=== PATIENT | female | born 1940 | race Caucasian/White ===

== ENCOUNTER 2021-05-17 09:02 | Inpatient (IN) | payer MEDICARE, SELFPAY ==
[2021-05-17] VITALS (13 sets, daily range): BP systolic 111–184; BP diastolic 51–84; PULSE 86–117; RESP 13–20; TEMP 36.4–38.1; O2SAT 94–98; BMI 34.0
--- NOTE | 2021-05-17 | ECG_ITS ---
Test Reason : GENERAL MEDICINE Blood Pressure : / mmHG Vent. Rate : 111 BPM Atrial Rate : 111 BPM P-R Int : 208 ms QRS Dur : 074 ms QT Int : 320 ms P-R-T Axes : 057 096 065 degrees QTc Int : 435 ms Sinus tachycardia Rightward axis Low voltage QRS Borderline ECG No previous ECGs available Referred By: Noah Joe Electronically Signed By:SHANIKA PHELAN
--- NOTE | ~2021-05-17 | XR_ITS ---
EXAMINATION: XR CHEST CLINICAL INFORMATION: Cough COMPARISON: None TECHNIQUE: Frontal view of the chest was obtained. FINDINGS: Right base airspace opacity is consistent with pneumonia in this patient with cough. Normal heart size. No pleural effusion or pneumothorax. Normal pulmonary vascularity. XR/XR chest 1V IMPRESSION: Right base airspace opacity consistent with pneumonia in this patient with cough. Recommend follow-up after treatment to confirm resolution.
--- NOTE | 2021-05-17 09:27 | ED.GENADULT ---
HPI - General Adult General Chief complaint: General Medical Stated complaint: nausea Time Seen by Provider: 05/17/21 09:23 Source: patient Mode of arrival: ambulatory Limitations: no limitations History of Present Illness HPI narrative: Patient presents to ED for acid burning sensation going up throat since last night and also mild chest pain since last night. Patient states no swelling, calf swelling, shortness of breath, weakness, or dizziness. Patient states having chronic cough. Patient states 2 episodes of pneumonia this year. Patient denies any recent hospital admission. Related Data Home Medications Medication Instructions Recorded Confirmed Lactobacillus acidophilus 10 10,000 mmu cells PO DAILY 05/17/21 05/17/21 billion cell capsule (Probiotic) aspirin 81 mg chewable tablet 81 mg PO DAILY 05/17/21 05/17/21 levothyroxine 50 mcg tablet 50 mcg PO DAILY 05/17/21 05/17/21 (Synthroid) loratadine 10 mg tablet 1 tab PO DAILY@1800 05/17/21 05/17/21 lorazepam 0.5 mg tablet 1 tab PO DAILY PRN 05/17/21 05/17/21 losartan 50 mg tablet 1 tab PO DAILY@1800 05/17/21 05/17/21 magnesium 250 mg tablet 250 mg PO Q48H 05/17/21 05/17/21 metformin 500 mg tablet,extended 1 tab PO BID 05/17/21 05/17/21 release 24 hr multivitamin 1 tab PO DAILY 05/17/21 05/17/21 omega-3 fatty acids 1,000 mg PO DAILY 05/17/21 05/17/21 pantoprazole 20 mg tablet,delayed 1 tab PO DAILY 05/17/21 05/17/21 release rosuvastatin 10 mg tablet 1 tab PO BEDTIME 05/17/21 05/17/21 timolol maleate 0.5 % eye drops 1 drp OPHTHALMIC (EYE) BID 05/17/21 05/17/21 triamterene 37.5 1 cap PO DAILY 05/17/21 05/17/21 mg-hydrochlorothiazide 25 mg capsule Allergies Allergy/AdvReac Type Severity Reaction Status Date / Time MEL Inhibitors Allergy Unknown Verified 05/17/21 09:31 Beta-Blockers Allergy Unknown Verified 05/17/21 09:31 (Beta-Adrenergic Bloc nitrofurantoin Allergy Unknown Verified 05/17/21 09:31 [From Macrobid] Review of Systems Review of Systems: Yes all other systems are reviewed and are negative Constitutional: Constitutional: Reports as per HPI and Reports no additional constitutional complaints Eyes: Eyes: Reports as per HPI and Reports no additional eye complaints ENT: Reports system reviewed and no additional complaints, except as documented and Reports as per HPI Cardiovascular: Cardiovascular: Reports as per HPI, Reports no additional cardiovascular complaints and Reports chest pain Respiratory: Respiratory: Reports as per HPI, Reports no additional respiratory complaints and Reports pain with cough (chronic) Gastrointestinal: Gastrointestinal: Reports heartburn Genitourinary: Genitourinary: Reports no additional female genitourinary complaints and Reports as per HPI Musculoskeletal: Musculoskeletal: Reports no additional musculoskeletal complaints and Reports as per HPI Neurologic: Reports system reviewed and no additional complaints, except as documented and Reports as per HPI Psychiatric: Psychiatric: Reports no additional psychiatric complaints and Reports as per HPI PMFSH Past Medical History Medical History High cholesterol HTN (hypertension) Thyroid disease Social History Social History (Updated 05/17/21 @ 14:32 by Kathy Alaniz MD) Household Members: Children Alcohol intake: never Patient Tobacco Use Status: Former Tobacco user Use of substances other than those prescribed or required for medical reasons: No Advance Directives: Yes Advance Directives on File: No Physical Exam Vital Signs: Vital Signs: Last Vital Signs Temp 98.8 F 05/17/21 15:23 Pulse 99 05/17/21 15:23 Resp 19 05/17/21 15:23 BP 132/61 05/17/21 15:23 Pulse Ox 96 05/17/21 15:23 Body Mass Index 34.0 Const: General: cooperative, healthy appearing, comfortable, no acute distress, well developed, alert, awake and Physically active Orientation/consciousness: patient oriented x3 HENMT: Head: Yes normal to inspection, Yes No palpable skull fracture present, Yes normocephalic and Yes atraumatic Eyes: General: appearance normal, both eyes and all related structures Neck: Neck: Yes normal visual inspection, Yes full ROM, Yes no lymphadenopathy, Yes no meningeal signs, Yes trachea midline, Yes supple and No tender Chest: Chest palpation & inspection: normal inspection of the chest and normal palpation of entire chest wall Resp: Effort & Inspection: normal respiratory effort and able to speak in complete sentences Auscultation: crackles on the right and rales on the right Cardio: Jugular venous distension: no JVD Heart sounds: S1 normal heart sound present and S2 normal heart sound present GI: Inspection: Yes normal to inspection and No abdominal wall ecchymosis Palpation (GI): Soft to palpation, not firm, nontender, no guarding and not rigid : General: Yes no CVA tenderness Back/Spine/Pelvis: Back: no CVA tenderness and No back tenderness Skin: General skin exam: no rashes or lesions noted and elasticity normal Neuro: General: patient oriented x3, gait normal, no meningeal signs and CN's II-XI intact bilaterally Cranial nerves: Yes CN's II-XII intact bilaterally Extrem: Other: Lower extremities negative for swelling, pitting edema, calf tenderness General: Yes normal to inspection and Yes full ROM Psych: Appearance: grossly normal, well kempt and not disheveled Course Course Course Narrative: Patient low-grade fever with tachycardia. Will order labs, chest x-ray, UA, lactic acid, and blood cultures. COVID swab ordered. Cardiac markers also ordered. EKG ordered. Reevaluation(s) Reevaluation #1: Patient has elevated white blood cell count. Chest x-ray shows pneumonia. Liver enzymes normal. Lactic acid elevated. Patient started on antibiotics. Will admit for pneumonia with sepsis. Patient is not hypoxic. Patient already had fluids. EKG only shows sinus tachycardia. Time: 12:58 Medical Decision Making [facility] Narrative Medical decision making narrative: Pneumonia. Sepsis Lab Data Result diagrams: 05/17/21 10:17 05/17/21 10:17 Labs: Lab Results 05/17/21 05/17/21 05/17/21 Range/Units 09:38 10:15 10:15 WBC (4.8-10.8) X10*3/uL RBC (4.20-5.50) X10*6/uL Hgb (12.0-16.0) g/dl Hct (37-47) % MCV (80-98) fL MCH (27.0-33.0) pg MCHC (31.0-35.0) g/dl RDW (11.0-16.0) % Plt Count (160-400) X10*3/uL MPV (9.4-12.3) fL Immature Gran % (Auto) (0.0-0.4) % Neut % (Auto) (45-73) % Lymph % (Auto) (20-40) % [place] % (Auto) (2-11) % Eos % (Auto) (0-4) % Baso % (Auto) (0-2) % Lymph # (Auto) (1.2-4.9) X10*3/uL [place] # (Auto) (0.1-1.2) X10*3/uL Eos # (Auto) (0.0-0.4) X10*3/uL Baso # (Auto) (0.0-0.2) X10*3/uL Abs Immat Gran (auto) (0.00-0.03) X10*3/uL Absolute Neuts (auto) (2.0-8.3) X10*3/uL Absolute Nucleated RBC (0.0-0.012) X10*3/uL Nucleated RBC % (auto) (0.0-0.2) /100WBC PT (9.9-13.0) SEC INR (0.9-1.1) APTT (24.1-38.0) SEC Sodium (135-145) mmol/L Potassium (3.3-5.1) mmol/L Chloride (96-108) mmol/L Carbon Dioxide (22-29) mmol/L Anion Gap (12-20) BUN (9-16) mg/dL Creatinine (0.5-1.4) mg/dL Estim Creat Clear Calc Estimated GFR Random Glucose (60-115) mg/dL Lactic Acid (0.5-2.0) mmol/L Calcium (8.4-10.2) mg/dL Ferritin (10-250) ng/mL Total Bilirubin 1.0 (0.0-1.0) mg/dL Direct Bilirubin 0.4 (0.0-0.5) mg/dL AST 50 H (5-31) U/L ALT 45 H (0-31) U/L Alkaline Phosphatase 95 (39-117) U/L Lactate Dehydrogenase (122-220) U/L Troponin I High Sens (<3.5-17.0) ng/L B-Natriuretic Peptide (<100) pg/mL Total Protein 6.8 (6.5-8.0) g/dL Albumin 4.1 (3.5-5.0) g/dL Lipase 18 (8-78) U/L Procalcitonin ng/mL Coronavirus (PCR) NEGATIVE (Negative) Influenza Type A (PCR) NEGATIVE (Negative) Influenza Type B (PCR) NEGATIVE (Negative) RSV RNA Qual (PCR) NEGATIVE (Negative) 05/17/21 05/17/21 05/17/21 Range/Units 10:16 10:16 10:17 WBC 18.2 H (4.8-10.8) X10*3/uL RBC 4.09 L (4.20-5.50) X10*6/uL Hgb 12.3 (12.0-16.0) g/dl Hct 35.4 L (37-47) % MCV 86.6 (80-98) fL MCH 30.1 (27.0-33.0) pg MCHC 34.7 (31.0-35.0) g/dl RDW 13.1 (11.0-16.0) % Plt Count 263 (160-400) X10*3/uL MPV 10.0 (9.4-12.3) fL Immature Gran % (Auto) 0.6 H (0.0-0.4) % Neut % (Auto) 86.8 H (45-73) % Lymph % (Auto) 5.9 L (20-40) % [place] % (Auto) 6.3 (2-11) % Eos % (Auto) 0.2 (0-4) % Baso % (Auto) 0.2 (0-2) % Lymph # (Auto) 1.1 L (1.2-4.9) X10*3/uL [place] # (Auto) 1.1 (0.1-1.2) X10*3/uL Eos # (Auto) 0.0 (0.0-0.4) X10*3/uL Baso # (Auto) 0.0 (0.0-0.2) X10*3/uL Abs Immat Gran (auto) 0.11 H (0.00-0.03) X10*3/uL Absolute Neuts (auto) 15.8 H (2.0-8.3) X10*3/uL Absolute Nucleated RBC 0.000 (0.0-0.012) X10*3/uL Nucleated RBC % (auto) 0.0 (0.0-0.2) /100WBC PT (9.9-13.0) SEC INR (0.9-1.1) APTT (24.1-38.0) SEC Sodium (135-145) mmol/L Potassium (3.3-5.1) mmol/L Chloride (96-108) mmol/L Carbon Dioxide (22-29) mmol/L Anion Gap (12-20) BUN (9-16) mg/dL Creatinine (0.5-1.4) mg/dL Estim Creat Clear Calc Estimated GFR Random Glucose (60-115) mg/dL Lactic Acid (0.5-2.0) mmol/L Calcium (8.4-10.2) mg/dL Ferritin 65 (10-250) ng/mL Total Bilirubin (0.0-1.0) mg/dL Direct Bilirubin (0.0-0.5) mg/dL AST (5-31) U/L ALT (0-31) U/L Alkaline Phosphatase (39-117) U/L Lactate Dehydrogenase 181 (122-220) U/L Troponin I High Sens 15.2 (<3.5-17.0) ng/L B-Natriuretic Peptide 27 (<100) pg/mL Total Protein (6.5-8.0) g/dL Albumin (3.5-5.0) g/dL Lipase (8-78) U/L Procalcitonin ng/mL Coronavirus (PCR) (Negative) Influenza Type A (PCR) (Negative) Influenza Type B (PCR) (Negative) RSV RNA Qual (PCR) (Negative) 05/17/21 05/17/21 05/17/21 Range/Units 10:17 10:17 10:17 WBC (4.8-10.8) X10*3/uL RBC (4.20-5.50) X10*6/uL Hgb (12.0-16.0) g/dl Hct (37-47) % MCV (80-98) fL MCH (27.0-33.0) pg MCHC (31.0-35.0) g/dl RDW (11.0-16.0) % Plt Count (160-400) X10*3/uL MPV (9.4-12.3) fL Immature Gran % (Auto) (0.0-0.4) % Neut % (Auto) (45-73) % Lymph % (Auto) (20-40) % [place] % (Auto) (2-11) % Eos % (Auto) (0-4) % Baso % (Auto) (0-2) % Lymph # (Auto) (1.2-4.9) X10*3/uL [place] # (Auto) (0.1-1.2) X10*3/uL Eos # (Auto) (0.0-0.4) X10*3/uL Baso # (Auto) (0.0-0.2) X10*3/uL Abs Immat Gran (auto) (0.00-0.03) X10*3/uL Absolute Neuts (auto) (2.0-8.3) X10*3/uL Absolute Nucleated RBC (0.0-0.012) X10*3/uL Nucleated RBC % (auto) (0.0-0.2) /100WBC PT 11.8 (9.9-13.0) SEC INR 1.0 (0.9-1.1) APTT 30.1 (24.1-38.0) SEC Sodium 137 (135-145) mmol/L Potassium 3.4 (3.3-5.1) mmol/L Chloride 102 (96-108) mmol/L Carbon Dioxide 23 (22-29) mmol/L Anion Gap 15 (12-20) BUN 17 H (9-16) mg/dL Creatinine 0.84 (0.5-1.4) mg/dL Estim Creat Clear Calc 59.9 Estimated GFR > 60 Random Glucose 177 H (60-115) mg/dL Lactic Acid (0.5-2.0) mmol/L Calcium 9.6 (8.4-10.2) mg/dL Ferritin (10-250) ng/mL Total Bilirubin (0.0-1.0) mg/dL Direct Bilirubin (0.0-0.5) mg/dL AST (5-31) U/L ALT (0-31) U/L Alkaline Phosphatase (39-117) U/L Lactate Dehydrogenase (122-220) U/L Troponin I High Sens (<3.5-17.0) ng/L B-Natriuretic Peptide (<100) pg/mL Total Protein (6.5-8.0) g/dL Albumin (3.5-5.0) g/dL Lipase (8-78) U/L Procalcitonin 1.01 ng/mL Coronavirus (PCR) (Negative) Influenza Type A (PCR) (Negative) Influenza Type B (PCR) (Negative) RSV RNA Qual (PCR) (Negative) 05/17/21 Range/Units 11:06 WBC (4.8-10.8) X10*3/uL RBC (4.20-5.50) X10*6/uL Hgb (12.0-16.0) g/dl Hct (37-47) % MCV (80-98) fL MCH (27.0-33.0) pg MCHC (31.0-35.0) g/dl RDW (11.0-16.0) % Plt Count (160-400) X10*3/uL MPV (9.4-12.3) fL Immature Gran % (Auto) (0.0-0.4) % Neut % (Auto) (45-73) % Lymph % (Auto) (20-40) % [place] % (Auto) (2-11) % Eos % (Auto) (0-4) % Baso % (Auto) (0-2) % Lymph # (Auto) (1.2-4.9) X10*3/uL [place] # (Auto) (0.1-1.2) X10*3/uL Eos # (Auto) (0.0-0.4) X10*3/uL Baso # (Auto) (0.0-0.2) X10*3/uL Abs Immat Gran (auto) (0.00-0.03) X10*3/uL Absolute Neuts (auto) (2.0-8.3) X10*3/uL Absolute Nucleated RBC (0.0-0.012) X10*3/uL Nucleated RBC % (auto) (0.0-0.2) /100WBC PT (9.9-13.0) SEC INR (0.9-1.1) APTT (24.1-38.0) SEC Sodium (135-145) mmol/L Potassium (3.3-5.1) mmol/L Chloride (96-108) mmol/L Carbon Dioxide (22-29) mmol/L Anion Gap (12-20) BUN (9-16) mg/dL Creatinine (0.5-1.4) mg/dL Estim Creat Clear Calc Estimated GFR Random Glucose (60-115) mg/dL Lactic Acid 2.7 H* (0.5-2.0) mmol/L Calcium (8.4-10.2) mg/dL Ferritin (10-250) ng/mL Total Bilirubin (0.0-1.0) mg/dL Direct Bilirubin (0.0-0.5) mg/dL AST (5-31) U/L ALT (0-31) U/L Alkaline Phosphatase (39-117) U/L Lactate Dehydrogenase (122-220) U/L Troponin I High Sens (<3.5-17.0) ng/L B-Natriuretic Peptide (<100) pg/mL Total Protein (6.5-8.0) g/dL Albumin (3.5-5.0) g/dL Lipase (8-78) U/L Procalcitonin ng/mL Coronavirus (PCR) (Negative) Influenza Type A (PCR) (Negative) Influenza Type B (PCR) (Negative) RSV RNA Qual (PCR) (Negative) ECG Data Interpretation: Sinus tachycardia. Ventricular rate 111. Pr interval 208. QRS 74. QTC 435. Negative STEMI Critical Care Time Critical Care Time Critical Care Time: Yes Total Critical Care Time: 60 Attestation: Patient started antibiotics and given fluids. Hospitals made aware of case. Discharge Plan Discharge Clinical Impression: Pneumonia, Sepsis Patient Disposition: Admitted As Inpatient
[2021-05-17 10:27] LABS: MANUAL DIFF FLAG NO
[2021-05-17 10:29] LABS: Basophils Percent Auto 0.2 % (0-2); Eosinophils Percent Auto 0.2 % (0-4); Hematocrit 35.4 % (37-47); Hemoglobin 12.3 g/dl (12.0-16.0); Imm Gran Abs Auto 0.11 X10*3/uL (0.00-0.03); Imm Gran Pct Auto 0.6 % (0.0-0.4); Lymphocytes Absolute Auto 1.1 X10*3/uL (1.2-4.9); Lymphocytes Percent Auto 5.9 % (20-40); Mean Corpuscular HGB Conc 34.7 g/dl (31.0-35.0); Mean Corpuscular Hemoglobin 30.1 pg (27.0-33.0); Mean Corpuscular Volume 86.6 fL (80-98); Monocytes Absolute Auto 1.1 X10*3/uL (0.1-1.2); Monocytes Percent Auto 6.3 % (2-11); Neutrophils Absolute Auto 15.8 X10*3/uL (2.0-8.3); Neutrophils Percent Auto 86.8 % (45-73); Platelet Count 263 X10*3/uL (160-400); Red Blood Count 4.09 X10*6/uL (4.20-5.50); Red Cell Distribution Width 13.1 % (11.0-16.0); White Blood Count 18.2 X10*3/uL (4.8-10.8)
[2021-05-17 10:35] LABS: Prothrombin Time 11.8 SEC (9.9-13.0)
[2021-05-17 10:37] LABS: Partial Thromboplastin Time 30.1 SEC (24.1-38.0)
[2021-05-17 10:43] LABS: Lactate Dehydrogenase 181 U/L (122-220)
[2021-05-17 10:44] LABS: Anion Gap 15 (12-20); Blood Urea Nitrogen 17 mg/dL (9-16); Calcium 9.6 mg/dL (8.4-10.2); Carbon Dioxide 23 mmol/L (22-29); Chloride 102 mmol/L (96-108); Creatinine Clr Calc Pharmacy 59.9; Estimated Glomerular Filt Rate > 60; Glucose Random 177 mg/dL (60-115); Potassium 3.4 mmol/L (3.3-5.1); Sodium 137 mmol/L (135-145)
[2021-05-17 10:45] LABS: Alanine Aminotransferase 45 U/L (0-31); Albumin Level 4.1 g/dL (3.5-5.0); Alkaline Phosphatase 95 U/L (39-117); Aspartate Amino Transferase 50 U/L (5-31); Bilirubin Direct 0.4 mg/dL (0.0-0.5); Lipase 18 U/L (8-78); Total Protein 6.8 g/dL (6.5-8.0)
[2021-05-17] MEDS: 0.9 % Sodium Chloride 1,000 ML 999 ML IV (10:48)
[2021-05-17 10:49] LABS: B Type Natriuretic Peptide 27 pg/mL (<100); Troponin-I High Sensitivity 15.2 ng/L (<3.5-17.0)
[2021-05-17 11:06] LABS: Ferritin 65 ng/mL (10-250)
[2021-05-17 11:10] LABS: Procalcitonin 1.01 ng/mL
[2021-05-17 11:16] LABS: Influenza A PCR NEGATIVE (Negative); Influenza B PCR NEGATIVE (Negative); Resp Syncy Virus RNA Qual PCR NEGATIVE (Negative); SARS COV2 PCR INHOUSE NEGATIVE (Negative)
[2021-05-17] MEDS: cefTRIAXone sodium 1 GM in 0.9 % Sodium Chloride 50 ML IV (11:40)
[2021-05-17 11:51] LABS: Lactic Acid 2.7 mmol/L (0.5-2.0)
[2021-05-17] MEDS: Azithromycin 500 MG in 0.9 % Sodium Chloride 250 ML 125 MG IV (12:43)
[2021-05-17 13:18] LABS: Reflex Lactate? Lactic Acid Added
--- NOTE | 2021-05-17 13:30 | PC.NURSE ---
dr. ag at bedside pt aware of plan of care for admission to hosp.
--- NOTE | 2021-05-17 14:26 | PM.IMHP ---
History of Present Illness Date of Service: 05/17/21 Chief Complaint: Throat pain and cough 80-year-old female patient with past medical history significant for diabetes mellitus, hypothyroidism, 2 recent episodes of pneumonia in last 1 year treated with antibiotics was seen by emergency services professional at [place] and was told that likely there were side effects of Macrobid that she was using for UTI, patient presented to [facility] [place] this morning, due to symptoms of throat pain and coughing since last night therefore she remain upright on a recliner at home later started feeling cold and shivering Janae put on her socks and a bathrobe checked a temperature that was 97 and this morning she noticed un easy nurse in chest in both upper arms she is unable to describe it further but denies any chest pain no heaviness no associated shortness of breath no palpitation no near-syncope with these symptoms she called her PCP and was referred to [place] [facility] where she was noted to have a low-grade fever a chest x-ray showedRight base pneumonia patient treated in emergency room with IV ceftriaxone and azithromycin and now being admitted to [facility] for continued monitoring and evaluation Review of Systems Review of Systems: General mild headache no dizziness, no fever, positive chills. CVS no chest pain, no palpitation. Respiratory dry cough , mild shortness of breath, no respiratory distress Gastrointestinal no nausea no vomiting, no abdominal pain skin no rash Yes all other systems are reviewed and are negative [facility] Medical History High cholesterol HTN (hypertension) Thyroid disease Functional capacity: independent ambulation Pertinent family history: No history of premature coronary artery disease or lung cancer mother had quadruple bypass at 870 Social History (Updated 05/17/21 @ 14:32 by Kathy Alaniz MD) Household Members: Children Alcohol intake: never Patient Tobacco Use Status: Former Tobacco user Use of substances other than those prescribed or required for medical reasons: No Advance Directives: Yes Advance Directives on File: No Meds Allergies Allergy/AdvReac Type Severity Reaction Status Date / Time MEL Inhibitors Allergy Unknown Verified 05/17/21 09:31 Beta-Blockers Allergy Unknown Verified 05/17/21 09:31 (Beta-Adrenergic Bloc nitrofurantoin Allergy Unknown Verified 05/17/21 09:31 [From Macrobid] Active Medications: Current Medications Generic Name Dose Route Start Last Admin Trade Name Freq PRN Reason Stop Dose Admin Enoxaparin Sodium 40 mg 05/17/21 14:30 Enoxaparin Sodium 40 Mg/0.4 Ml Syringe SUBCUT Q24H [facility] Guaifenesin/Dextromethorphan 10 ml 05/17/21 14:21 Guaifenesin Dm 100/10/5 Ml 5 Ml Syrup PO Q6H PRN cough Ceftriaxone Sodium 1 gm/ 50 mls @ 100 mls/hr 05/17/21 14:30 Sodium Chloride IV Q24H [facility] Pharmacy Consult 1 each 05/17/21 13:34 Consult Rx Perform Med Rec MISCELLANE ONCE PRN Consult order Sodium Chloride 3 ml 05/17/21 16:00 0.9 % Sodium Chloride Flush 3 Ml Syringe IVFLUSH QSHIFT [facility] Home Medications Medication Instructions Recorded Confirmed Last Taken Type levothyroxine 50 mcg tablet tab PO 05/17/21 Unknown History (Synthroid) loratadine 10 mg tablet 1 tab PO DAILY 05/17/21 Unknown History lorazepam 0.5 mg tablet 1 tab PO DAILY PRN 05/17/21 Unknown History losartan 50 mg tablet 1 tab PO DAILY 05/17/21 Unknown History metformin 500 mg tablet,extended 1 tab PO BID 05/17/21 Unknown History release 24 hr omeprazole 20 mg capsule,delayed 1 cap PO DAILY 05/17/21 Unknown History release pantoprazole 20 mg tablet,delayed 1 tab PO DAILY 05/17/21 Unknown History release rosuvastatin 10 mg tablet 1 tab PO BEDTIME 05/17/21 Unknown History timolol maleate 0.5 % eye drops drp 05/17/21 Unknown History triamterene 37.5 1 cap PO DAILY 05/17/21 Unknown History mg-hydrochlorothiazide 25 mg capsule Physical Exam Vital Signs and Narrative: Vital Signs: Last Vital Signs Temp 99.8 F 05/17/21 13:47 Pulse 102 H 05/17/21 13:47 Resp 19 05/17/21 13:47 BP 116/56 L 05/17/21 13:47 Pulse Ox 94 05/17/21 13:47 Body Mass Index 34.0 General no acute distress. Neck is supple no JVD. CVS regular rate rhythm, Respiratory lungs clear to auscultation, coarse breath sound at right base, no respiratory distress, no wheeze, no rhonchi. Gastrointestinal abdomen soft, nontender, bowel sounds audible, no no guarding , no rigidity. Extremities no clubbing cyanosis or edema. Neuro alert x oriented x3, nonfocal patient moving all 4 extremity speech clear. Skin no rash Psych appropriate affect Results Labs CBC and Chem 7: 05/17/21 10:17 05/17/21 10:17 Labs: Laboratory Results - last 24 hr 05/17/21 05/17/21 05/17/21 09:38 10:15 10:15 MCV MCH MCHC RDW Plt Count MPV Immature Gran % (Auto) Neut % (Auto) Lymph % (Auto) [place] % (Auto) Eos % (Auto) Baso % (Auto) Lymph # (Auto) [place] # (Auto) Eos # (Auto) Baso # (Auto) Abs Immat Gran (auto) Absolute Neuts (auto) Absolute Nucleated RBC Nucleated RBC % (auto) PT INR APTT Anion Gap Estim Creat Clear Calc Estimated GFR Random Glucose Lactic Acid Calcium Ferritin Total Bilirubin 1.0 Direct Bilirubin 0.4 AST 50 H ALT 45 H Alkaline Phosphatase 95 Lactate Dehydrogenase Troponin I High Sens B-Natriuretic Peptide Total Protein 6.8 Albumin 4.1 Lipase 18 Procalcitonin Coronavirus (PCR) NEGATIVE Influenza Type A (PCR) NEGATIVE Influenza Type B (PCR) NEGATIVE RSV RNA Qual (PCR) NEGATIVE 05/17/21 05/17/21 05/17/21 10:16 10:16 10:17 MCV 86.6 MCH 30.1 MCHC 34.7 RDW 13.1 Plt Count 263 MPV 10.0 Immature Gran % (Auto) 0.6 H Neut % (Auto) 86.8 H Lymph % (Auto) 5.9 L [place] % (Auto) 6.3 Eos % (Auto) 0.2 Baso % (Auto) 0.2 Lymph # (Auto) 1.1 L [place] # (Auto) 1.1 Eos # (Auto) 0.0 Baso # (Auto) 0.0 Abs Immat Gran (auto) 0.11 H Absolute Neuts (auto) 15.8 H Absolute Nucleated RBC 0.000 Nucleated RBC % (auto) 0.0 PT INR APTT Anion Gap Estim Creat Clear Calc Estimated GFR Random Glucose Lactic Acid Calcium Ferritin 65 Total Bilirubin Direct Bilirubin AST ALT Alkaline Phosphatase Lactate Dehydrogenase 181 Troponin I High Sens 15.2 B-Natriuretic Peptide 27 Total Protein Albumin Lipase Procalcitonin Coronavirus (PCR) Influenza Type A (PCR) Influenza Type B (PCR) RSV RNA Qual (PCR) 05/17/21 05/17/21 05/17/21 10:17 10:17 10:17 MCV MCH MCHC RDW Plt Count MPV Immature Gran % (Auto) Neut % (Auto) Lymph % (Auto) [place] % (Auto) Eos % (Auto) Baso % (Auto) Lymph # (Auto) [place] # (Auto) Eos # (Auto) Baso # (Auto) Abs Immat Gran (auto) Absolute Neuts (auto) Absolute Nucleated RBC Nucleated RBC % (auto) PT 11.8 INR 1.0 APTT 30.1 Anion Gap 15 Estim Creat Clear Calc 59.9 Estimated GFR > 60 Random Glucose 177 H Lactic Acid Calcium 9.6 Ferritin Total Bilirubin Direct Bilirubin AST ALT Alkaline Phosphatase Lactate Dehydrogenase Troponin I High Sens B-Natriuretic Peptide Total Protein Albumin Lipase Procalcitonin 1.01 Coronavirus (PCR) Influenza Type A (PCR) Influenza Type B (PCR) RSV RNA Qual (PCR) 05/17/21 11:06 MCV MCH MCHC RDW Plt Count MPV Immature Gran % (Auto) Neut % (Auto) Lymph % (Auto) [place] % (Auto) Eos % (Auto) Baso % (Auto) Lymph # (Auto) [place] # (Auto) Eos # (Auto) Baso # (Auto) Abs Immat Gran (auto) Absolute Neuts (auto) Absolute Nucleated RBC Nucleated RBC % (auto) PT INR APTT Anion Gap Estim Creat Clear Calc Estimated GFR Random Glucose Lactic Acid 2.7 H* Calcium Ferritin Total Bilirubin Direct Bilirubin AST ALT Alkaline Phosphatase Lactate Dehydrogenase Troponin I High Sens B-Natriuretic Peptide Total Protein Albumin Lipase Procalcitonin Coronavirus (PCR) Influenza Type A (PCR) Influenza Type B (PCR) RSV RNA Qual (PCR) Imaging Radiologist's Impressions: Impressions Chest X-Ray 05/17/21 10:22 IMPRESSION: Right base airspace opacity consistent with pneumonia in this patient with cough. Recommend follow-up after treatment to confirm resolution. Assessment and Plan (1) Pneumonia: Status: Acute (2) Sepsis: Status: Acute 80-year-old female with past medical history of hypertension, diabetes mellitus, and hypothyroidism with 2 prior episodes of pneumonia in last 1 year presented to [facility] due to sore throat cough fever chills and diagnosed to have sepsis due to pneumonia. Pneumonia with severe sepsis Patient meets sepsis criteria due to tachycardia leukocytosis, lactic acidosis, has low-grade fever, sepsis focused examination done. Will admit to medical floor patient will be treated with IV ceftriaxone and azithromycin for community-acquired pneumonia will follow 2 set of blood cultures Place patient on cough medication, follow CBC ,lactic acid, electrolytes Diabetes mellitus Uncontrolled blood sugar will place on insulin sliding scale continue home medication Hypertension noted to have elevated blood pressure on arrival subsequently blood pressure improved continue home medication follow BP closely Hypothyroidism continue Synthroid DVT prophylaxis will place on Lovenox Code status full code Quality Stroke Does the patient have a stroke diagnosis?: No VTE Prior VTE?: No VTE Risk Level:: Medical - moderate - high VTE Device Contraindication: Treatment Not Indicated VTE Drug Contraindication: N/A - Med Ordered
--- NOTE | 2021-05-17 14:51 | PHA.MEDREC ---
Pharmacy Consult ? Medication Reconciliation Pharmacy has completed the medication reconciliation. There are no remarkable issues for provider's attention. Petrona Guerrero, LarissaD
[2021-05-17 15:37] LABS: Appearance Urine CLEAR; Color Urine YELLOW; Glucose Urine UA NEG (NEG); Leukocyte Esterase Urine TRACE (NEG); Nitrite Urine NEG (NEG); UACC Culture Trigger YES; Urine Blood NEG (NEG); Urine Ketones NEG (NEG); Urine Protein NEG (NEG-TRACE)
[2021-05-17] MEDS: Enoxaparin Sodium 40 MG/0.4 ML SYRINGE SUBCUT (15:38)
[2021-05-17 15:56] LABS: Bacteria Urine TRACE /LPF; RBC Urine 0-2 /HPF (0); Squamous Epithelial Cell Urine TRACE /LPF; WBC Urine 0-2 /HPF (0-4)
--- NOTE | 2021-05-17 16:11 | PC.NURSE ---
called to med surg, nurse to call for report
[2021-05-17 17:04] LABS: ~Lactic Acid-LAB USE ONLY 2.3 mmol/L (0.5-2.0)
[2021-05-17 18:20] LABS: Reflex Lactate? 2 Y
[2021-05-17] MEDS: Acetaminophen 325 MG TABLET 650 MG PO (18:36)
[2021-05-17 19:43] LABS: ~Lactic Acid-LAB USE ONLY 2.2 mmol/L (0.5-2.0)
[2021-05-17] MEDS: 0.9 % Sodium Chloride Flush 3 ML SYRINGE IVFLUSH (20:32)
[2021-05-18] MEDS: Levothyroxine Sodium 50 MCG TABLET PO (06:02)
[2021-05-18 07:46] VITALS: BP 160/85; PULSE 83; RESP 17; TEMP 36.4; O2SAT 96
[2021-05-18 08:14] LABS: MANUAL DIFF FLAG NO
[2021-05-18 08:18] LABS: Basophils Percent Auto 0.3 % (0-2); Eosinophils Absolute Auto 0.3 X10*3/uL (0.0-0.4); Eosinophils Percent Auto 2.3 % (0-4); Hemoglobin 11.4 g/dl (12.0-16.0); Imm Gran Abs Auto 0.05 X10*3/uL (0.00-0.03); Imm Gran Pct Auto 0.4 % (0.0-0.4); Lymphocytes Absolute Auto 2.8 X10*3/uL (1.2-4.9); Lymphocytes Percent Auto 21.5 % (20-40); Mean Corpuscular HGB Conc 33.5 g/dl (31.0-35.0); Mean Corpuscular Hemoglobin 29.5 pg (27.0-33.0); Mean Corpuscular Volume 88.1 fL (80-98); Monocytes Absolute Auto 0.8 X10*3/uL (0.1-1.2); Monocytes Percent Auto 5.8 % (2-11); Neutrophils Absolute Auto 9.2 X10*3/uL (2.0-8.3); Neutrophils Percent Auto 69.7 % (45-73); Platelet Count 264 X10*3/uL (160-400); Red Blood Count 3.86 X10*6/uL (4.20-5.50); Red Cell Distribution Width 13.4 % (11.0-16.0); White Blood Count 13.1 X10*3/uL (4.8-10.8)
[2021-05-18] MEDS: Omeprazole 20 MG CAPSULE.DR PO (09:22)
[2021-05-18] MEDS: Triamterene/HCTZ 37.5/25 TABLET 1 TAB PO (09:22)
[2021-05-18] MEDS: Aspirin 81 MG TAB.CHEW PO (09:22)
[2021-05-18] MEDS: Azithromycin 500 MG in 0.9 % Sodium Chloride 250 ML 125 MG IV (09:23)
[2021-05-18] MEDS: Multivitamin TABLET 1 TAB PO (09:23)
[2021-05-18] MEDS: 0.9 % Sodium Chloride Flush 3 ML SYRINGE IVFLUSH (09:24)
[2021-05-18] MEDS: metFORMIN HCl ER 500 MG TAB.ER.24H PO (10:34)
[2021-05-18] MEDS: timoloL maleate 0.5 % Oph Sol 5 ML DRBTL 1 DROP EYE-BOTH (10:34)
--- NOTE | 2021-05-18 10:41 | PM.DS ---
DS: Providers Provider Date of Service: 05/18/21 Date of admission: 05/17/21 14:21 Primary care physician: Disha Hernandez NP DS: Diagnosis Discharge Diagnosis (1) Pneumonia: Status: Acute (2) Sepsis: Status: Acute DS: Summary Hospital Course Hospital Course: History presenting illness Chief Complaint: Throat pain and cough 80-year-old female patient with past medical history significant for diabetes mellitus, hypothyroidism, 2 recent episodes of pneumonia in last 1 year treated with antibiotics was seen by olive picker at [place] and was told that likely there were side effects of Macrobid that she was using for UTI, patient presented to [facility] this morning, due to symptoms of throat pain and coughing since last night therefore she remain upright on a recliner at home later started feeling cold and shivering Janae put on her socks and a bathrobe checked a temperature that was 97 and this morning she noticed un easy nurse in chest in both upper arms she is unable to describe it further but denies any chest pain no heaviness no associated shortness of breath no palpitation no near-syncope with these symptoms she called her PCP and was referred to [facility] where she was noted to have a low-grade fever a chest x-ray showedRight base pneumonia patient treated in emergency room with IV ceftriaxone and azithromycin and now being admitted to [facility] for continued monitoring and evaluation Hospital course Patient admitted with a diagnosis of severe sepsis, all symptoms of sepsis improved, no tachycardia tachypnea this morning no fever WBC trending down, blood cultures x2 negative, patient treated with IV ceftriaxone and IV azithromycin has received 2 days of antibiotic will discharge home on 5 more days of Ceftin and azithromycin recommended to drink plenty of fluids rest take cough medication as needed and return to check with any worsening symptoms of fever chills lightheadedness dizziness or near syncope. She has been recommended to continue all home medications. Time Spent with Patient Time attestation: Total time spent providing and/or coordinating discharge services: Discharge coordination time: Less than 30 minutes Quality: Stroke Does the patient have a stroke diagnosis?: No Physical Exam Vital Signs: Vital Signs: Last Vital Signs Temp 97.5 F 05/18/21 07:46 Pulse 83 05/18/21 07:46 Resp 17 05/18/21 07:46 BP 160/85 H 05/18/21 07:46 Pulse Ox 96 09/11/21 07:46 Body Mass Index 34.0 General? no acute distress.? Neck is supple no JVD. CVS? regular rate rhythm, Respiratory lungs clear to auscultation, coarse breath sound at right base, no respiratory distress, no wheeze, no rhonchi. Gastrointestinal abdomen soft, nontender, bowel sounds audible, no no guarding , no rigidity. Extremities no clubbing cyanosis or edema. Neuro alert x oriented x3, nonfocal patient moving all 4 extremity speech clear. Skin no rash Psych appropriate affect DS: Data Data Completed and Pending Labs on day of discharge: Laboratory Results - last 24 hr 05/17/21 05/17/21 05/17/21 09:38 10:15 10:15 WBC RBC Hgb Hct MCV MCH MCHC RDW Plt Count MPV Immature Gran % (Auto) Neut % (Auto) Lymph % (Auto) Powell % (Auto) Eos % (Auto) Baso % (Auto) Lymph # (Auto) Powell # (Auto) Eos # (Auto) Baso # (Auto) Abs Immat Gran (auto) Absolute Neuts (auto) Absolute Nucleated RBC Nucleated RBC % (auto) PT INR APTT Sodium Potassium Chloride Carbon Dioxide Anion Gap BUN Creatinine Estim Creat Clear Calc Estimated GFR Random Glucose Lactic Acid Lactic Acid Fup @ 2Hr Lactic Acid Fup @ 4Hr Calcium Ferritin Total Bilirubin 1.0 Direct Bilirubin 0.4 AST 50 H ALT 45 H Alkaline Phosphatase 95 Lactate Dehydrogenase Troponin I High Sens B-Natriuretic Peptide Total Protein 6.8 Albumin 4.1 Lipase 18 Procalcitonin Urine Color Urine Appearance Urine pH Ur Specific [place] Urine Protein Urine Glucose (UA) Urine Ketones Urine Blood Urine Nitrite Ur Leukocyte Esterase Urine RBC Urine WBC Ur Squamous Epith Cells Urine Bacteria Coronavirus (PCR) NEGATIVE Influenza Type A (PCR) NEGATIVE Influenza Type B (PCR) NEGATIVE RSV RNA Qual (PCR) NEGATIVE 05/17/21 05/17/21 05/17/21 10:16 10:16 10:17 WBC RBC Hgb Hct MCV MCH MCHC RDW Plt Count MPV Immature Gran % (Auto) Neut % (Auto) Lymph % (Auto) Powell % (Auto) Eos % (Auto) Baso % (Auto) Lymph # (Auto) Powell # (Auto) Eos # (Auto) Baso # (Auto) Abs Immat Gran (auto) Absolute Neuts (auto) Absolute Nucleated RBC Nucleated RBC % (auto) PT 11.8 INR 1.0 APTT 30.1 Sodium Potassium Chloride Carbon Dioxide Anion Gap BUN Creatinine Estim Creat Clear Calc Estimated GFR Random Glucose Lactic Acid Lactic Acid Fup @ 2Hr Lactic Acid Fup @ 4Hr Calcium Ferritin 65 Total Bilirubin Direct Bilirubin AST ALT Alkaline Phosphatase Lactate Dehydrogenase 181 Troponin I High Sens 15.2 B-Natriuretic Peptide 27 Total Protein Albumin Lipase Procalcitonin Urine Color Urine Appearance Urine pH Ur Specific [place] Urine Protein Urine Glucose (UA) Urine Ketones Urine Blood Urine Nitrite Ur Leukocyte Esterase Urine RBC Urine WBC Ur Squamous Epith Cells Urine Bacteria Coronavirus (PCR) Influenza Type A (PCR) Influenza Type B (PCR) RSV RNA Qual (PCR) 05/17/21 05/17/21 05/17/21 10:17 10:17 11:06 WBC RBC Hgb Hct MCV MCH MCHC RDW Plt Count MPV Immature Gran % (Auto) Neut % (Auto) Lymph % (Auto) Powell % (Auto) Eos % (Auto) Baso % (Auto) Lymph # (Auto) Powell # (Auto) Eos # (Auto) Baso # (Auto) Abs Immat Gran (auto) Absolute Neuts (auto) Absolute Nucleated RBC Nucleated RBC % (auto) PT INR APTT Sodium 137 Potassium 3.4 Chloride 102 Carbon Dioxide 23 Anion Gap 15 BUN 17 H Creatinine 0.84 Estim Creat Clear Calc 59.9 Estimated GFR > 60 Random Glucose 177 H Lactic Acid 2.7 H* Lactic Acid Fup @ 2Hr Lactic Acid Fup @ 4Hr Calcium 9.6 Ferritin Total Bilirubin Direct Bilirubin AST ALT Alkaline Phosphatase Lactate Dehydrogenase Troponin I High Sens B-Natriuretic Peptide Total Protein Albumin Lipase Procalcitonin 1.01 Urine Color Urine Appearance Urine pH Ur Specific [place] Urine Protein Urine Glucose (UA) Urine Ketones Urine Blood Urine Nitrite Ur Leukocyte Esterase Urine RBC Urine WBC Ur Squamous Epith Cells Urine Bacteria Coronavirus (PCR) Influenza Type A (PCR) Influenza Type B (PCR) RSV RNA Qual (PCR) 05/17/21 05/17/21 05/17/21 15:29 16:14 19:06 WBC RBC Hgb Hct MCV MCH MCHC RDW Plt Count MPV Immature Gran % (Auto) Neut % (Auto) Lymph % (Auto) Powell % (Auto) Eos % (Auto) Baso % (Auto) Lymph # (Auto) Powell # (Auto) Eos # (Auto) Baso # (Auto) Abs Immat Gran (auto) Absolute Neuts (auto) Absolute Nucleated RBC Nucleated RBC % (auto) PT INR APTT Sodium Potassium Chloride Carbon Dioxide Anion Gap BUN Creatinine Estim Creat Clear Calc Estimated GFR Random Glucose Lactic Acid Lactic Acid Fup @ 2Hr 2.3 H* Lactic Acid Fup @ 4Hr 2.2 H* Calcium Ferritin Total Bilirubin Direct Bilirubin AST ALT Alkaline Phosphatase Lactate Dehydrogenase Troponin I High Sens B-Natriuretic Peptide Total Protein Albumin Lipase Procalcitonin Urine Color YELLOW Urine Appearance CLEAR Urine pH 6.0 Ur Specific [place] 1.020 Urine Protein NEG Urine Glucose (UA) NEG Urine Ketones NEG Urine Blood NEG Urine Nitrite NEG Ur Leukocyte Esterase TRACE H Urine RBC 0-2 Urine WBC 0-2 Ur Squamous Epith Cells TRACE Urine Bacteria TRACE Coronavirus (PCR) Influenza Type A (PCR) Influenza Type B (PCR) RSV RNA Qual (PCR) 05/18/21 07:47 WBC 13.1 H RBC 3.86 L Hgb 11.4 L Hct 34.0 L MCV 88.1 MCH 29.5 MCHC 33.5 RDW 13.4 Plt Count 264 MPV 10.0 Immature Gran % (Auto) 0.4 Neut % (Auto) 69.7 Lymph % (Auto) 21.5 Powell % (Auto) 5.8 Eos % (Auto) 2.3 Baso % (Auto) 0.3 Lymph # (Auto) 2.8 Powell # (Auto) 0.8 Eos # (Auto) 0.3 Baso # (Auto) 0.0 Abs Immat Gran (auto) 0.05 H Absolute Neuts (auto) 9.2 H Absolute Nucleated RBC 0.000 Nucleated RBC % (auto) 0.0 PT INR APTT Sodium Potassium Chloride Carbon Dioxide Anion Gap BUN Creatinine Estim Creat Clear Calc Estimated GFR Random Glucose Lactic Acid Lactic Acid Fup @ 2Hr Lactic Acid Fup @ 4Hr Calcium Ferritin Total Bilirubin Direct Bilirubin AST ALT Alkaline Phosphatase Lactate Dehydrogenase Troponin I High Sens B-Natriuretic Peptide Total Protein Albumin Lipase Procalcitonin Urine Color Urine Appearance Urine pH Ur Specific [place] Urine Protein Urine Glucose (UA) Urine Ketones Urine Blood Urine Nitrite Ur Leukocyte Esterase Urine RBC Urine WBC Ur Squamous Epith Cells Urine Bacteria Coronavirus (PCR) Influenza Type A (PCR) Influenza Type B (PCR) RSV RNA Qual (PCR) Discharge Plan Discharge Patient Disposition: Home, Self-Care Discharge Diagnosis: Sepsis due to Pneumonia Diabetes mellitus Referrals: Disha Hernandez, [employer] [Primary Care Provider] - 1 Week Discharge Medications: New cefuroxime axetil 500 mg tablet 500 mg PO Q12H 5 Days Qty: 10 RF: 0 azithromycin 250 mg tablet 250 mg PO DAILY Qty: 4 RF: 0 Continued losartan 50 mg tablet 1 tab PO DAILY@1800 RF: 0 triamterene-hydrochlorothiazid 37.5-25 mg capsule 1 cap PO DAILY RF: 0 pantoprazole 20 mg tablet,delayed release (DR/EC) 1 tab PO DAILY RF: 0 lorazepam 0.5 mg tablet 1 tab PO DAILY PRN (Reason: Anxiety) RF: 0 levothyroxine [Synthroid] 50 mcg tablet 50 mcg PO DAILY RF: 0 timolol maleate 0.5 % drops 1 drp ophthalmic (eye) BID RF: 0 metformin 500 mg tablet extended release 24 hr 1 tab PO BID RF: 0 loratadine 10 mg tablet 1 tab PO DAILY@1800 RF: 0 rosuvastatin 10 mg tablet 1 tab PO BEDTIME RF: 0 multivitamin Tablet 1 tab PO DAILY RF: 0 aspirin 81 mg Tablet,Chewable 81 mg PO DAILY RF: 0 magnesium 250 mg Tablet 250 mg PO Q48H RF: 0 omega-3 fatty acids Capsule 1,000 mg PO DAILY RF: 0 Probiotic 10 billion cell Capsule 10,000 mmu cells PO DAILY RF: 0 Discharge Orders: Discharge Order (Routine); Ordered 05/18/21 Ordered By: Kathy Alaniz Diet: diabetic diet Activity on Discharge: As tolerated Stand Alone Forms: Patient Portal Discharge page Care Plan Goals: Take Ceftin 500 mg twice daily for 5 days, azithromycin 250 mg daily for 4 days, take cough medication as needed drink plenty of fluids return to check with any worsening shortness of breath cough fevers or dizziness. Health Concerns: Use all home medications as before Plan of Treatment: Outpatient follow-up with PCP in 1 week Assessment: As above
--- NOTE | 2021-05-18 10:44 | MHC.CM.PN ---
CM MET WITH PT WHO REPORTS SHE LIVES WITH HER SON AND IS INDEPENDENT WITH ALL CARE AND MOBILITY HOWEVER DOES HAVE DIFFICULTY CLEANING DUE TO DIZZINESS WHEN BENDING OVER AND LIMITED ROM WITH HER RIGHT ARM. PT REPORTS SHE DID CALL [facility] TO SEE IF SHE COULD GET ASSISTANCE HOWEVER THEY HAVE NOT RETURNED HER CALL. CM WILL MAKE A REFERRAL. PT CONFIRMS HER PCP Jazlyn BUCHANAN AND SAYS SHE HAS A HCP COMPLETED NAMING HER SON THE AGENT. IMM DELIVERED PT WILL DC HOME LATER THIS AFTERNOON WITH NO SERVICES PTS SON WILL TRANSPORT
[2021-05-18 11:44] VITALS: BP 147/62; PULSE 91; RESP 18; TEMP 36.2; O2SAT 96
[2021-05-18] MEDS: cefTRIAXone sodium 1 GM in 0.9 % Sodium Chloride 50 ML IV (13:13)
[2021-05-18] MEDS: Acetaminophen 325 MG TABLET 650 MG PO (13:13)
== END 2021-05-18 14:40 | disposition home or self-care (01) | DRG 871 ==
LOC: HO.ED 10:44 → HO.EDOVER 14:57 → HO.S3 16:08
PROVIDERS: Physician Assistant; Admitting Provider Hospitalist; Emergency Provider Emergency Medicine; PCP Nurse Practitioner Family; Visit Provider Hospitalist
DX: A41.9 Sepsis, unspecified organism (principal); J18.9 Pneumonia, unspecified organism; I10 Essential (primary) hypertension; E11.9 Type 2 diabetes mellitus without complications; E03.9 Hypothyroidism, unspecified; R65.20 Severe sepsis without septic shock; Z20.822 Contact with and (suspected) exposure to COVID-19; Z87.891 Personal history of nicotine dependence; Z79.82 Long term (current) use of aspirin; Z79.890 Hormone replacement therapy; Z79.899 Other long term (current) drug therapy
CPT/HCPCS: 0241U; 36415; 71045; 80048; 80076; 81001; 82728; 83605; 83615; 83690; 83880; 84145; 84484; 85025; 85610; 85730; 87040; 87086; 93005; 96361; 96365; 96367; 99285; 99291; J0456; J0696; J1650